=== PATIENT | female | born 1985 | race Caucasian/White ===

== ENCOUNTER 2021-05-09 17:57 | Emergency (ER) | payer OTHER ==
[~2021-05-09] VITALS: Wt 69.4 kg
[2021-05-09] MEDS ORDERED: CYCLOBENZAPRINE10 MG PO (22:42)
== END 2021-05-09 22:50 | disposition home or self-care (01) ==
LOC: ED 17:57
DX: S13.4XXA Sprain of ligaments of cervical spine, initial encounter (principal); M54.50 Low back pain, unspecified; G43.909 Migraine, unspecified, not intractable, without status migrainosus; V43.52XA Car driver injured in collision with other type car in traffic accident, initial encounter; Y93.I9 Activity, other involving external motion; Y92.488 Other paved roadways as the place of occurrence of the external cause; Y99.8 Other external cause status